=== PATIENT | female | born 1965 | race Caucasian/White ===

== ENCOUNTER 2016-09-18 10:01 | Emergency (ER) | payer BC ==
[2016-09-18 10:17] VITALS: BP 121/81
--- NOTE | 2016-09-18 11:09 | UC ---
Ear Complaint HPI - HPI Summary HPI Summary: Pt states that during movement she feels dizzy that began approx 0300. Pt states she has some left ear pain and sinus congestion that is increasing today. Pt denies Chest Pain and SOB. Pt complains of nausea with dizziness. Pt states nausea relieves after resting. Has just finished prednisone for bursitis 2 days ago. Has ENT for chronic ear concerns. No fever. No discharge from ear. Concerned as she is flying to [place] for 7 weeks in 5 days. Pt states when she rolled to her left this AM in bed her dizziness started for a few min. Denies LEE , vision changes, arm or face numbness. Has had allergy like Sx for a few weeks [ End ] - History of Current Complaint Chief Complaint: UCDizziness Stated Complaint: DIZZINESS NAUSEA LEFT EAR COMPLAINT Time Seen by Provider: 09/18/16 10:56 Hx Obtained From: Patient ?: No Onset/Duration: Gradual Onset Alleviating Factors: OTC Meds Associated Signs/Symptoms: Negative: Discharge, Hearing Loss, Foreign Body Sensation - Allergies/Home Medications Allergies/Adverse Reactions: Allergies Allergy/AdvReac Type Severity Reaction Status Date / Time Aspirin Allergy Headache Verified 09/18/16 10:17 Home Medications: Home Medications Cholecalciferol [Vitamin D] 5,000 unit PO BID 09/18/16 [History Confirmed ] Magnesium Oxide (mg Supplement [Magnesium] 1 tab PO DAILY 09/18/16 [History Confirmed 09/18/16] [place]-3 Fatty Acids [Fish Oil] 1 tab PO DAILY 09/18/16 [History Confirmed ] PMH/Surg Hx/FS Hx/Imm Hx Previously Healthy: Yes Endocrine History Of: Denies: Diabetes Cardiovascular History Of: Denies: Cardiac Disorders, Hypertension, Pacemaker/ICD Respiratory History Of: Denies: Asthma Psychological History Of: Reports: Depression Cancer History Of: Reports: Breast Cancer - Surgical History Surgical History: Yes Surgery Procedure, Year, and Place: L lumpectomy and lympth node. Tonsilectomy. uterine fibroids removed X2. D&C OCTOBER 2015 - Family History Known Family History: Positive: Cardiac Disease - mom's father - stroke - smoker , Other - no family history of sinus or ENT disorders Negative: Hypertension, Diabetes Family History: no cardiovascular issues in family lineage - Social History Occupation: Employed Full-time - [employer] Lives: With Family Alcohol Use: Daily Alcohol Amount: glass of wine Substance Use Type: None Smoking Status (MU): Never Smoked Tobacco Review of Systems Constitutional: Negative Skin: Negative Eyes: Negative ENT: Sore Throat, Ear Ache, Nasal Discharge Respiratory: Negative Cardiovascular: Negative Gastrointestinal: Negative Genitourinary: Negative Motor: Negative Neurovascular: Negative Musculoskeletal: Negative Neurological: Other - dizzyness Psychological: Negative All Other Systems Reviewed And Are Negative: Yes Physical Exam Triage Information Reviewed: Yes Appearance: Well-Appearing, No Pain Distress, Well-Nourished Vital Signs: Initial Vital Signs Temp 97.3 F 09/18/16 10:11 Pulse 82 09/18/16 10:11 Resp 16 09/18/16 10:11 BP 121/81 09/18/16 10:11 Pulse Ox 97 09/18/16 10:11 Vital Signs Reviewed: Yes Eye Exam: Normal ENT Exam: Normal ENT: Positive: Hearing grossly normal, Pharynx normal, Nasal congestion, Nasal drainage, TM dull - b/l ear, Other: - frontal sinus tenderness. Negative: TM red, Tonsillar swelling, Tonsillar exudate Dental Exam: Normal Neck exam: Normal Neck: Positive: 1 Respiratory Exam: Normal Cardiovascular Exam: Normal Musculoskeletal Exam: Normal Neurological Exam: Normal Neurological: Positive: Alert, Other: - DId not perform [place] as patient states earlier Sx were bothersome Psychological Exam: Normal Skin Exam: Normal Ear Complaint Course/Dx - Course Course Of Treatment: Discussed etiology of BPPV and treat at this time. Discussed likely viral sinusitis-- conservative treatment at this time. SHe and hisband are agreeable. No stroke like Sx and aware of red flags to look for. They were mostly concerned and wanted to ensure no ear or bacterial sinus infection - Differential Dx/Diagnosis Differential Diagnosis/HQI/PQRI: Otitis Externa, Otitis Media, URI, Other - bppv Provider Diagnoses: vertigo and sinusitis Discharge - Discharge Plan Condition: Good Disposition: HOME Prescriptions: Meclizine TAB* [Antivert 12.5 TAB*] 12.5 mg PO TID PRN #20 tab PRN Reason: Dizziness Patient Education Materials: Vertigo (ED) Referrals: Pato Paez MD [Primary Care Provider] - 3 Days (If needed )
== END 2016-09-18 11:19 | disposition home or self-care (01) ==
LOC: UCCORT 10:01
DX: R42 Dizziness and giddiness (principal); J32.9 Chronic sinusitis, unspecified; Z88.6 Allergy status to analgesic agent; F32.9 Major depressive disorder, single episode, unspecified; Z85.3 Personal history of malignant neoplasm of breast
CPT/HCPCS: 99212; G0463